=== PATIENT | female | born 1960 | race Caucasian/White ===

== ENCOUNTER → 2017-07-14 | Outpatient (CLI) | payer BC ==
[~2017-07-14] VITALS: Ht 157.5 cm; Wt 50.7 kg
[~2017-07-14] MED LIST: ACCUNEB SO1.25 MG/1 INH; AMITRIPTYLINE H10 M3 PO; FLEXERIL PO; IBUPROFEN 200200 M1 PO; LISINOPRIL5 MG PO; MEDROLDOSEPACK PO; VITAMIN B-12500 MCG PO
--- NOTE | ~2017-07-14 | HPC ---
[facility] [place] [address] PAIN MANAGEMENT CONSULTATION Name: GAURAV BAUGH Room #: REG ELE [place]#: [id number] Admission: 07/14/17 Attend Phys: Gulshan Mitchell MD Discharge: Date of : 60 Report #: [id number] THIS REPORT FOR: //name// CC: Leonidas Mitchell DATE OF SERVICE: 07/14/2017 CHIEF COMPLAINT: Pain in the neck and arm. HISTORY OF PRESENT ILLNESS: The patient is a 56-year-old female who has been referred to the pain clinic for evaluation of neck and arm pain. She has been having pain in her neck and her left arm since about 01/2017. She is a psychologist. She denies any trauma. She has noticed that her pain slowly has worsened in the left arm over the last few months. She has pain, which radiates down the left arm into the fourth and fifth digits of her hand with numbness and weakness. She notes some pain and discomfort in her neck and in the left portion of her shoulder. Notes that if she leans her head to the left and tilt it backwards that she is experiencing some shooting discomfort down into her hands. She states that she continues to be active. She does engage in yoga. 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 Describes her discomfort as continuous, constant, shooting, aching, and rates it as an 8/10 at this juncture. Pain is worse when she is holding her neck straight as well as when she is turning her head. She is not sure of anything that has made it significantly better. She states that it feels like there is a TENS unit running on her arm. She has not had surgery. States that she saw a surgeon who has provided the option of a surgical intervention. At this juncture, she would like to try the most conservative approach. She has not taken a Medrol Dosepak. ALLERGIES: THE PATIENT STATES THAT SHE HAS HAD LIDOCAINE IN THE PAST AND HAS HAD SOME SEIZURE ACTIVITY. STATES THAT SHE IS ALLERGIC TO "ALL DALI." SHE HAS NOT BEEN SPECIFICALLY TESTED PER HER REPORT. CURRENT MEDICATIONS: Lisinopril 5 mg daily, Flexeril 10 mg, albuterol inhaler 1 puff half with exercise p.r.n., B12, and ibuprofen 200 mg total of 800 mg t.i.d. PAST MEDICAL HISTORY: 1. Hypertension. 2. Exercise-induced asthma. 3. Seasonal allergies. 4. Fibromyalgia. 5. Osteoarthritis. 6. Previous seizures. 7. Shingles in 2016. [address] [address] PAIN MANAGEMENT CONSULTATION Name: GAURAV BAUGH Room #: REG [facility] [place].#: [id number] Admission: 07/14/17 Attend Phys: Gulshan Mitchell MD Discharge: Date of : 60 Report #: [id number] FAMILY HISTORY: Heart disease, hypertension, and breast cancer. PAST SURGICAL HISTORY: 1. Appendectomy in 1971. 2. D and C in 1984 and in 1986. 3. Oophorectomy in 1974. 4. Sesamoidectomy in 1981. 5. Bilateral carpal tunnel release in 10/2016. 6. Multiple laparoscopic treatments for endometriosis in the and . SOCIAL HISTORY: She is , has 2 children. She is employed as a psychiatrist. She denies use of tobacco. About 2-3 glasses of wine per week. Denies illicit drugs or IV drug use. REVIEW OF SYSTEMS: A 14-point review of systems indicates generally good health, fatigue, weakness, wears glasses, sore throat, shortness of breath, palpitations, asthma, wheezing, abdominal pain, frequent headaches, lightheadedness, seizure history in the past, numbness and tingling sensation involving of the left arm. LABORATORY DATA: MRI of the cervical spine dated 06/01/2017: 1. C2-C3 central disk osteophyte complex with mild effacement of the anterior thecal sac. Left facet hypertrophy. Narrowing of the left neural foramen. The thecal sac 1.0 cm AP. 2. C3-C4 marked left facet hypertrophy with marked narrowing of the left neural foramen. Thecal sac and cord are intact. The right neural foramen is intact. Thecal sac is 1.1 cm AP. 3. C4-C5 marked left facet hypertrophy, some circumferential bulging annulus. Effacement of the anterior thecal sac, narrowing of the neural foramen. Thecal sac 1.1 cm AP. 4. C5-C6 marked left facet hypertrophy. Large circumferential disk osteophyte complex, bulging annulus with neural foraminal stenosis and effacement of the anterior thecal sac. Thecal sac 0.9 cm AP. 5. C6-C7 large circumferential bulging annulus with marked effacement of the thecal sac and cord narrowing of the right neural foramen. Stenosis of the left neural foramen. Thecal sac 0.7 cm AP. 6. C7-T1 asymmetric bulging annulus with greater bulge to the left and midline and greater left neural foraminal effacement of the neural foramen. Mild effacement of the thecal sac. Thecal sac 0.9 cm AP. PHYSICAL EXAMINATION: VITAL SIGNS: Blood pressure 116/67, pulse 67, respiratory rate 14, room air saturations 100%. Height 5 foot 2 inches, weight 111 pounds, BMI is 20. GENERAL: The patient is a well-developed slight built female with no obvious problems. Appearance, seems age appropriate. Orientation, alert and oriented. Affect is appropriate. [facility] [address] [place] [address] PAIN MANAGEMENT CONSULTATION Name: GAURAV BAUGH Room #: REG ELE [place].#: [id number] Admission: 07/14/17 Attend Phys: Gulshan Mitchell MD Discharge: Date of : 60 Report #: [id number] HEENT: Normocephalic and atraumatic. Eyes, conjunctivae and sclerae are clear with no nystagmus. Hearing is grossly normal. Nose, no deformity or discharge. Mouth, good dentition. Neck is without adenopathy or JVD. Rotation of the neck to the left and right did cause some soreness which is noted in the left scapular area. Palpation in the area of the rhomboids reproduces some pain and discomfort. Spurling maneuver cause some increased pain with pain radiating down to the left arm. HEART: Clear to auscultation. Regular rate. LUNGS: Clear. MUSCULOSKELETAL: Appears to have normal alignment. No obvious scoliosis or kyphosis, nor lordosis noted. The patient is able to lift her hands over her head. Deep tendon reflexes are +1 on the left for the biceps, trace for triceps and trace, brachioradialis is +1 on the left to trace, and trace deltoid. The patient has sensation of numbness and tingling in the left arm and forearm as well as down to her fingers. Wrist flexion and extension on the right judged to be 5/5 strength, on the left 4/5. The patient's wrist gives way. Lower extremities, the patient is able to walk on her toes and able to walk on her heels. Deep tendon reflexes are +2 at the knees and +1 at the ankles. Muscle strength is judged to be 5/5 in the major muscle groups in the lower extremity. IMPRESSION: 1. Cervical radiculopathy involving the left arm with pain radiating down into the left arm with numbness and weakness in the left wrist involving her fingers. 2. Hypertension. 3. Exercise-induced asthma. 4. Seasonal allergies. 5. Fibromyalgia. 6. Osteoarthritis. 7. History of previous seizures. RECOMMENDATIONS: We reviewed the patient's MRI with her. Areas of pathology were shown to the patient. She could note the difference in the involved areas versus those which were not involved. Notes made of a reversal of the normal cervical lordosis. The patient has significant areas of degeneration at C5-C6 and C6-C7. We discussed the options. We explained that cervical epidural steroid injections have been helpful for some folks with cervical radiculopathy. By placing medication in this area, if appreciable amount of swelling decreases the patients skin can note an improvement in their symptomatology. Risks and benefits of the procedure, which could include infection, increased muscle soreness, headache, bleeding, nerve trauma were discussed. The patient states that she has had some problems with lidocaine in the past. She has not been tested per her account for other local anesthetics, but says that she is allergic to all dali. We would recommend that she see an medical scribe and note whether or not there are local anesthetic she would not find problematic. We explained to her that it will be quite difficult to undergo a cervical epidural steroid injection without use of a local anesthetic. We will try the [facility] [address] [place] [address] PAIN MANAGEMENT CONSULTATION Name: GAURAV BAUGH [id number] Admission: 07/14/17 Attend Phys: Gulshan Mitchell MD Discharge: Date of : 60 Report #: [id number] conservative approach and give the patient a Medrol Dosepak, which she will take for the next week. We will also have her to try Elavil and amitriptyline to note its efficacy and decreasing pain and possibility of use of gabapentin and other medications prior to surgery. We would like to thank you for letting us participate in her care. We hope she continues to improve. <ELECTRONICALLY SIGNED> By: Gulshan Mitchell MD 07/30/17 [id number] Gulshan Mitchell MD /[facility]
[2017-07-14 08:57] VITALS: BP 116/67
== END ==
LOC: PAIN 07:05
DX: M54.2 Cervicalgia (principal); M79.602 Pain in left arm; I10 Essential (primary) hypertension; J45.990 Exercise induced bronchospasm; J30.2 Other seasonal allergic rhinitis; M79.7 Fibromyalgia; M19.90 Unspecified osteoarthritis, unspecified site; Z90.49 Acquired absence of other specified parts of digestive tract; Z98.890 Other specified postprocedural states